=== PATIENT | male | born 1975 | race Caucasian/White ===

== ENCOUNTER 2016-09-28 21:31 | Emergency (ER) | payer SELFPAY ==
[~2016-09-28] VITALS: Ht 175.3 cm; Wt 81.5 kg
[2016-09-28] MEDS ORDERED: ZOLP10 PO (21:40)
[2016-09-28] MEDS ORDERED: BUPR1FIL SL (21:40)
[2016-09-28] MEDS ORDERED: GABA-531 PO (21:40)
[2016-09-28] MEDS ORDERED: QUET25TA PO (21:40)
[2016-09-28] MEDS ORDERED: PERTUSS(ACELL),DIPH,TET VAC/PF 0.5 ML VIAL IM ONE (22:30)
[2016-09-29 00:21] VITALS: BP 123/79
== END 2016-09-29 00:31 | disposition home or self-care (01) ==
LOC: EMS 21:34
DX: S91.312A Laceration without foreign body, left foot, initial encounter (principal); F17.210 Nicotine dependence, cigarettes, uncomplicated; W25.XXXA Contact with sharp glass, initial encounter; Y93.89 Activity, other specified; Y92.89 Other specified places as the place of occurrence of the external cause; Y99.8 Other external cause status
CPT/HCPCS: 90471; 90715; 99284

== ENCOUNTER 2019-05-31 02:29 | Emergency (ER) | payer SELFPAY ==
[~2019-05-31] VITALS: Ht 175.3 cm; Wt 95.5 kg
[~2019-05-31 02:29] MED LIST: BUPR1FIL SL; GABA-531 PO; QUET25TA PO; ZOLP-281 PO
[2019-05-31 02:48] VITALS: BP 116/56
[2019-05-31] MEDS ORDERED: PERTUSS(ACELL),DIPH,TET VAC/PF 0.5 ML VIAL IM ONE (03:00)
== END 2019-05-31 03:29 | disposition home or self-care (01) ==
LOC: EMS 02:30
DX: S01.81XA Laceration without foreign body of other part of head, initial encounter (principal); F41.9 Anxiety disorder, unspecified; F32.9 Major depressive disorder, single episode, unspecified; F17.210 Nicotine dependence, cigarettes, uncomplicated; W25.XXXA Contact with sharp glass, initial encounter; Y93.89 Activity, other specified; Y92.89 Other specified places as the place of occurrence of the external cause; Y99.8 Other external cause status
CPT/HCPCS: 90471; 90715